=== PATIENT | female | born 1970 | race African-American/Black ===

== ENCOUNTER 2018-03-03 01:04 | Emergency (ER) | payer OTHER, BC ==
[~2018-03-03] VITALS: Ht 190.5 cm; Wt 107.0 kg
[2018-03-03] MEDS ORDERED: KETOROLAC 30MG/ML VIAL IM ONE (02:30)
[2018-03-03 05:25] VITALS: BP 143/71
== END 2018-03-03 05:52 | disposition home or self-care (01) ==
LOC: ER 02:17
DX: M25.562 Pain in left knee (principal); M25.522 Pain in left elbow; Z90.710 Acquired absence of both cervix and uterus; Z88.8 Allergy status to other drugs, medicaments and biological substances
CPT/HCPCS: 73560; 96372; 99283; J1885; 99406